=== PATIENT | male | born 1995 | race African-American/Black ===

== ENCOUNTER 2017-11-02 03:32 | Emergency (ER) | payer OTHER ==
[~2017-11-02] VITALS: Ht 190.5 cm; Wt 66.0 kg
[2017-11-02 03:34] VITALS: Ht 190.5 cm; Wt 66.0 kg
[2017-11-02] MEDS ORDERED: KETOROLAC TROMETHAMINE 30 MG/ML VIAL IV STA (03:48)
[2017-11-02] MEDS ORDERED: ONDANSETRON INJ 2 MG/ML 2 ML VIAL IV STA (03:48)
[2017-11-02] MEDS ORDERED: MoRPHine SULFATE 4 MG/ML 1 ML CARP\\VIAL IV ONE (04:00)
[2017-11-02] MEDS ORDERED: SODIUM CHLORIDE 0.9% 1000ML 1,000 ML IV ONE (04:00)
[2017-11-02 04:01] LABS: BASO % 0.4 %; BASO ABS # 0.04 K/uL (0-0.2); COMPLETE YES; EOS % 2.6 %; HEMATOCRIT 42.4 % (42-52); IG% 0.2 %; LYMPH % 36.6 %; LYMPH ABS # 4.16 K/uL (1.2-3.4); MEAN CELL VOLUME 92.2 fL (80-100); MEAN CORPUSCULAR HEMOGLOBIN 32.4 pg (25-34); MEAN CORPUSCULAR HGB CONC 35.1 g/dl (32-36); MEAN PLATELET VOLUME 10.6 fL (7.4-10.4); MONO % 9.9 %; NEUT % 50.3 %; PLATELET COUNT 220 K/uL (130-400); WHITE BLOOD COUNT 11.37 K/uL (4.8-10.8)
[2017-11-02 04:53] LABS: ALB/GLOB RATIO 1.3 (0.9-2); BUN/CREATININE RATIO 11.8 (10-20); CALCIUM 9.3 mg/dl (8.5-10.1); CREATININE 1.47 mg/dl (0.60-1.40)
[2017-11-02 04:54] LABS: POTASSIUM 2.5 mmol/L (3.5-5.1)
[2017-11-02] MEDS ORDERED: POTASSIUM CHLORIDE 20 MEQ TABCR PO STA (04:56)
[2017-11-02] MEDS ORDERED: POTASSIUM CHLORIDE 10 MEQ TABCR ONE (05:00)
[2017-11-02 05:35] LABS: URINE APPEARANCE CLEAR (CLEAR); URINE BILIRUBIN NEG (NEG); URINE COLOR YELLOW; URINE NITRITE NEG (NEG); URINE PH 5.5 (4.5-7.5); URINE SPECIFIC GRAVITY 1.025 (1.000-1.030); UROBILINOGEN NEG (NEG); ZZUR CULT IF INDIC CLEAN CATCH NO
[2017-11-02 05:43] VITALS: BP 114/62; PULSE 80; TEMP 36.6; O2SAT 100
[2017-11-02 05:54] LABS: BENZODIAZEPINE, URINE NEG (NEG); COCAINE,URINE NEG (NEG); MANUAL MICROSCOPIC REQUIRED? NO; PHENCYCLIDINE, URINE NEG (NEG); REVIEW REQ? NO
[2017-11-02] MEDS ORDERED: ONDANSETRON HOME PACK 4MG OD TAB PO ONE (06:15)
--- NOTE | 2017-11-02 06:59 | DIAGNOSTIC IMAGING REPORT ---
TESTICULAR ULTRASOUND HISTORY: Left testicle pain radiating into abd/back COMPARISON: None. FINDINGS: Right testis: 4.6 x 3.3 x 2.2 cm. There are no intratesticular masses. Normal color flow. No hydrocele. The epididymis is unremarkable. A few scattered microliths identified. Left testis: 4.7 x 1.9 x 2.8 cm. There are no intratesticular masses. Normal color flow. No hydrocele. The epididymis is unremarkable. A few scattered microliths identified. IMPRESSION: Bilateral testicular microlithiasis. No testicular mass or evidence for torsion. Electronically signed by: Juan Francisco Sanders M.D. 11/02/2017 6:58 AM Dictated Date/Time: 11/02/2017 6:57 AM
--- NOTE | 2017-11-02 07:12 | EMERGENCY ROOM VISIT NOTE ---
History First contact with patient: 03:40 Chief Complaint: ABDOMINAL PAIN Stated Complaint: ABD PAIN Nursing Triage Summary: left sided abdominal pain, with associated testical pain when trying to have a bowel movement today History of Present Illness The patient is a 22 year old male who presents to the Emergency Room with complaints of acute onset left-sided abdominal pain that radiates into his testicle. The patient states the pain began one hour ago and he rates it a 10/ 10. He was trying to have a bowel movement onset of symptoms. He is nauseated without vomiting. No diarrhea. The patient considers himself usually healthy and has not taken anything [id number] for his symptoms. He does not have a history of abdominal surgery. No history of known kidney stones. He is without chest pain, chest tightness, shortness of breath, upper abdominal discomfort.He is not concerned for STDs. He does not report recent drainage or discharge. Review of Systems More than 10 systems were reviewed and otherwise negative with the exception of history of present illness. Past Medical/Surgical History No chronic medical disease Social History Smoking Status: Current Every Day Smoker Drug Use: marijuana Occupation Status: student Current/Historical Medications No Active Prescriptions or Reported Meds Physical Exam Vital Signs Date Time Temp Pulse Resp B/P (MAP) Pulse Ox O2 Delivery O2 Flow Rate FiO2 11/02/17 05:43 36.6 80 18 114/62 100 Room Air 11/02/17 03:34 36.4 89 18 152/81 100 Room Air Physical Exam VITALS: Vitals are noted on the nurse's note and reviewed by myself. Vital signs stable. GENERAL: Well-developed, well-nourished, male who appears uncomfortable but not toxic. HEART: Regular rate and rhythm without murmurs gallops or rubs. LUNGS: Clear to auscultation bilaterally without wheezes, rales or rhonchi. No retractions or accessory muscle use. ABDOMEN: Positive normal bowel sounds x 4. Soft, nontender, without masses or organomegaly. No guarding or rebound tenderness.. : Normal-appearing external male genitalia with circumcised phallus. No urethral drainage or discharge. No obvious lesions. No distinct testicular tenderness. MUSCULOSKELETAL: No muscle atrophy, erythema, or edema noted. Full range of motion without joint tenderness in all extremities. Medical Decision & Procedures ER Provider Diagnostic Interpretation: Preliminary Findings Only See Final Report For Complete Findings US SCROTAL: Testicular microlithiasis. No worrisome mass. No evidence of torsion. Preliminary Findings Only See Final Report For Complete Findings CT ABDOMEN & PELVIS Without Contrast: Multiple bilateral renal calculi. No ureteral stone or hydronephrosis. Distended small bowel bowel in the pelvis with air-fluid levels. This could reflect ileus or enteritis, but difficult to exclude partial obstruction. Normal appendix. Laboratory Results 11/02/17 03:49 Red Blood Count 4.60, Mean Corpuscular Volume 92.2, Mean Corpuscular Hemoglobin 32.4, Mean Corpuscular Hemoglobin Concent 35.1, Mean Platelet Volume 10.6, Neutrophils (%) (Auto) 50.3, Lymphocytes (%) (Auto) 36.6, Monocytes (%) (Auto) 9.9, Eosinophils (%) (Auto) 2.6, Basophils (%) (Auto) 0.4, Neutrophils # (Auto) 5.72, Lymphocytes # (Auto) 4.16, Monocytes # (Auto) 1.13, Eosinophils # (Auto) 0.30, Basophils # (Auto) 0.04 11/02/17 03:49 Test 11/02/17 03:49 11/02/17 04:33 White Blood Count 11.37 K/uL (4.8-10.8) Red Blood Count 4.60 M/uL (4.7-6.1) Hemoglobin 14.9 g/dL (14.0-18.0) Hematocrit 42.4 % (42-52) Mean Corpuscular Volume 92.2 fL (80-100) Mean Corpuscular Hemoglobin 32.4 pg (25-34) Mean Corpuscular Hemoglobin Concent 35.1 g/dl (32-36) Platelet Count 220 K/uL (130-400) Mean Platelet Volume 10.6 fL (7.4-10.4) Neutrophils (%) (Auto) 50.3 % Lymphocytes (%) (Auto) 36.6 % Monocytes (%) (Auto) 9.9 % Eosinophils (%) (Auto) 2.6 % Basophils (%) (Auto) 0.4 % Neutrophils # (Auto) 5.72 K/uL (1.4-6.5) Lymphocytes # (Auto) 4.16 K/uL (1.2-3.4) Monocytes # (Auto) 1.13 K/uL (0.11-0.59) Eosinophils # (Auto) 0.30 K/uL (0-0.5) Basophils # (Auto) 0.04 K/uL (0-0.2) RDW Standard Deviation 43.5 fL (36.4-46.3) RDW Coefficient of Variation 12.9 % (11.5-14.5) Immature Granulocyte % (Auto) 0.2 % Immature Granulocyte # (Auto) 0.02 K/uL (0.00-0.02) Anion Gap 17.0 mmol/L (3-11) Est Creatinine Clear Calc Drug Dose 74.8 ml/min Estimated GFR () 78.5 Estimated GFR (Non- 67.7 BUN/Creatinine Ratio 11.8 (10-20) Calcium Level 9.3 mg/dl (8.5-10.1) Total Bilirubin 0.4 mg/dl (0.2-1) Aspartate Amino Transf (AST/SGOT) 7 U/L (15-37) Alanine Aminotransferase (ALT/SGPT) 15 U/L (12-78) Alkaline Phosphatase 77 U/L (45-117) Total Protein 7.8 gm/dl (6.4-8.2) Albumin 4.4 gm/dl (3.4-5.0) Globulin 3.4 gm/dl (2.5-4.0) Albumin/Globulin Ratio 1.3 (0.9-2) Lipase 97 U/L (73-393) Urine Color YELLOW Urine Appearance CLEAR (CLEAR) Urine pH 5.5 (4.5-7.5) Urine Specific Sterrett 1.025 (1.000-1.030) Urine Protein NEG (NEG) Urine Glucose (UA) NEG (NEG) Urine Ketones TRACE (NEG) Urine Occult Blood 3+ (NEG) Urine Nitrite NEG (NEG) Urine Bilirubin NEG (NEG) Urine Urobilinogen NEG (NEG) Urine Leukocyte Esterase NEG (NEG) Urine WBC (Auto) 1-5 /hpf (0-5) Urine RBC (Auto) >30 /hpf (0-4) Urine Hyaline Casts (Auto) 1-5 /lpf (0-5) Urine Epithelial Cells (Auto) 5-10 /lpf (0-5) Urine Bacteria (Auto) NEG (NEG) Urine Opiates Screen NEG (NEG) Urine Methadone, Qualitative NEG (NEG) Urine Barbiturates NEG (NEG) Urine Phencyclidine (PCP) Level NEG (NEG) Ur Amphetamine/Methamphetamine NEG (NEG) MDMA (Ecstasy) Screen NEG (NEG) Urine Benzodiazepines Screen NEG (NEG) Urine Cocaine Metabolite NEG (NEG) Urine Marijuana (THC) POS (NEG) Medications Administered Medications (Trade) Dose Ordered Sig/Laura Route Start Time Stop Time Status Last Admin Dose Admin Morphine Sulfate (MoRPHine SULFATE INJ) 4 mg NOW ONCE IV 11/02/17 04:00 11/02/17 04:01 DC 11/02/17 03:58 4 MG Sodium Chloride 1,000 ml @ 999 mls/hr Q1H1M ONCE IV 11/02/17 04:00 11/02/17 05:00 DC 11/02/17 03:59 999 MLS/HR Ondansetron HCl (Zofran Inj) 4 mg NOW STAT IV 11/02/17 03:48 11/02/17 03:51 DC 11/02/17 03:57 4 MG Ketorolac Tromethamine (Toradol Inj) 30 mg NOW STAT IV 11/02/17 03:48 11/02/17 03:51 DC 11/02/17 03:58 30 MG Potassium Chloride (Klor-Con M10) 40 meq STK-MED ONCE .ROUTE 11/02/17 05:00 11/02/17 05:01 DC 11/02/17 05:02 40 MEQ Ondansetron HCl (ZOFRAN ODT 4MG Home Pack) 1 homepa UD ONCE PO 11/02/17 06:15 11/02/17 06:16 DC 11/02/17 06:21 1 HOMEPACK ED Course Physical exam and history were performed. Nursing notes, EMR, and Medication List were personally reviewed. Patient appears to have reports of left-sided abdominal pain as well as left testicular pain. The patient does not have distinct reproducible tenderness on examination, but he is acting like he is in moderate to severe discomfort. The patient is a poorly otherwise healthy. Because of this IV access established and labs were obtained. He was given IV morphine and IV Toradol for comfort. I elect perform ultrasound of his testicles as well as CT scan. The patient's lower is as above and was reviewed. He does have a very slightly elevated white blood cell count. He does not have a significant anemia. His potassium is low and this was repleted orally. The patient does not have recent vomiting or diarrhea, but states that he has been traveling which has changed his normal diet. His urine is with blood but no obvious infection. Drug of abuse screen was positive for marijuana. Ultrasound does not show an acute testicular etiology for his symptoms. CT scan does reveal intrarenal calculi but no ureteral calculi. The patient may also have evidence of enteritis on CT of unknown etiology. On reevaluation after pain medication, the patient felt significantly better. He reported near-complete resolution of his symptoms. He was able to have a normal bowel movement. The case was discussed with my attending physician, and overall we feel the patient is stable for discharge home. He does not appear to have a surgical abdominal process. His potassium is low, which may be dietary as he does not appear to have GI loss. I did engage case management with this patient to help him obtain appropriate follow-up. The patient will need to see a primary care physician for further care and management. He will be treated conservatively otherwise with a short course of Zofran, fluids, bowel rest, and [id number] pain medications. He was otherwise invited back to the ER with any new, worsening, or concerning symptoms. The chart was completed utilizing [employer] Speech Voice Recognition Software. Grammatical errors, random word insertions, pronoun errors, and incomplete sentences are an occasional consequence of this system due to software limitations, ambient noise, and hardware issues. Any formal questions or concerns about the content, text, or information contained within the body of this dictation should be directly addressed to the provider for clarification. . Medical Decision Differential diagnosis: Etiologies such as renal colic, marijuana abuse, cyclic vomiting, testicular torsion, STD, appendicitis, diverticulitis, mesenteric ischemia, aortic pathology, infections, inflammatory bowel disease, PUD, biliary pathology, UTI, as well as others were entertained. Impression Primary Impression: Left sided abdominal pain Additional Impressions: Low blood potassium Marijuana use Departure Information Dispostion Home / Self-Care Condition GOOD Prescriptions No Active Prescriptions or Reported Meds Forms HOME CARE DOCUMENTATION FORM, IMPORTANT VISIT INFORMATION Patient Instructions My [facility] Additional Instructions You were seen and evaluated today on an emergency basis only. This is not a substitute for, or an effort to provide, complete comprehensive medical care. It is not possible to recognize and treat all injuries or illnesses in a single emergency department visit. For this reason it is recommended that you followup with the resources provided by case management to help establish a primary care physician. Drink plenty of fluids and remain well hydrated. For baseline pain relief you may alternate ibuprofen and acetaminophen every 4 hours for pain control. Take 600 mg ibuprofen (Advil) and then 4 hours later take 1000 mg acetaminophen (Tylenol). Do not take more than 3000 mg acetaminophen in a single day. Zofran 4 mg ODT: Dissolve 1 tablet every 6 hrs as needed for nausea. Avoid Marijuana as this can contribute to your symptoms. You are welcome to return to the emergency department anytime with new, worsening, or concerning symptoms. Problem Qualifiers
--- NOTE | 2017-11-02 07:20 | DIAGNOSTIC IMAGING REPORT ---
ABDOMEN AND PELVIS CT WITHOUT CONTRAST CT DOSE: 294.63 mGy.cm HISTORY: Left flank pain into testicle TECHNIQUE: Multiaxial CT images of the abdomen and pelvis were performed without contrast. A dose lowering technique was utilized adhering to the principles of ALARA. COMPARISON STUDY: None. FINDINGS: The lung bases are clear. No pneumoperitoneum. No pneumatosis. Multiple punctate bilateral renal calculi. No right-sided hydronephrosis. Punctate calcifications within the right deep pelvis. Represent phleboliths. There is mild fullness within the left renal collecting system without sd hydronephrosis. The ureters are difficult to follow due to the lack of intraperitoneal fat and adjacent bowel. A 3 mm calcification within the left deep pelvis on image 382. This is in the location of the distal left ureter but could also represent a phlebolith. Normal bladder. A few prominent fluid-filled loops of small bowel seen in the deep pelvis. Normal appendix. No bowel wall thickening. Suboptimal evaluation for bowel pathology due to the lack of intravenous and oral contrast. The unenhanced liver, gallbladder, spleen, adrenal glands, and pancreas are unremarkable. IMPRESSION: 1. Multiple punctate bilateral renal calculi. 2. Mild fullness within the left renal collecting system without sd hydronephrosis. The ureters are not well visualized due to the lack of intraperitoneal fat and adjacent bowel. There is a 3 mm calcification within the left deep pelvis which could be located in the distal left ureter or represent a phlebolith. If the patient symptoms persist then a delayed contrast-enhanced CT could be used to further evaluate the location of the ureters. Additional calcifications within the right deep pelvis are consistent with phleboliths. 3. Borderline dilated fluid-filled loops of small bowel within the deep pelvis. This raises the possibility of a mild enteritis. Partial small bowel obstruction is considered less likely. Electronically signed by: Juan Francisco Sanders M.D. 11/02/2017 7:18 AM Dictated Date/Time: 11/02/2017 7:08 AM
== END 2017-11-02 06:28 | disposition home or self-care (01) ==
LOC: C.EDB 03:33 → C.EDA 06:28
DX: R10.84 Generalized abdominal pain (principal); E87.6 Hypokalemia; F12.90 Cannabis use, unspecified, uncomplicated; F17.200 Nicotine dependence, unspecified, uncomplicated